=== PATIENT | male | born 1945 | race Caucasian/White ===

== ENCOUNTER 2017-07-31 12:34 | Inpatient (IN) | payer MEDICARE, BC ==
[2017-07-31] MEDS ORDERED: Ondansetron HCl/PF 4 MG/2 ML Vial ONE (12:47)
[2017-07-31 13:08] LABS: #Basophils 0.1 thou/uL (0.0-0.2); #Eosinphils 0.1 thou/uL (0.0-0.7); #Lymphocytes 1.5 thou/uL (1.20-3.40); #Monocytes 0.5 thou/uL (0.11-0.59); #Neutrophils 4.1 thou/uL (1.40-6.50); %Basophils 1.6 % (0.0-1.0); %Eosinophils 1.2 % (0.0-10.0); %Lymphocytes 23.8 % (21.0-51.0); %Monocytes 8.4 % (0.0-10.0); Hematocrit 42.8 % (42.0-52.0); Mean Platelet Volume 8.7 fL (7.4-10.4); Red Blood Cell (RBC) Count 4.83 mill/uL (4.70-6.10); White Blood Cell (WBC) Count 6.4 thou/uL (4.8-10.8)
[2017-07-31 13:17] LABS: ALT (SGPT) 11 U/L (8-55); AST (SGOT) 18 U/L (5-34); Alkaline Phosphatase 102 U/L (40-150); Anion Gap 15 mmol/L (10-20); BUN (Urea Nitrogen) 16 mg/dL (8.4-25.7); Bilirubin, Total 1.3 mg/dL (0.2-1.2); CK (CPK) 113 U/L (30-200); Calc. Creatinine Clearance 0 mL/min (70-130); Calcium 9.3 mg/dL (7.8-10.44); Carbon Dioxide 25 mmol/L (23-31); Chloride 102 mmol/L (98-107); Estimated GFR-MDRD 85; Globulin 2.9 g/dL (2.4-3.5); Lipase 24 U/L (8-78); Magnesium 1.9 mg/dL (1.6-2.6); Protein, Total 6.8 g/dL (5.8-8.1); Troponin I Less than 0.010 ng/mL (< 0.028)
[2017-07-31 13:34] LABS: Bilirubin Negative (Negative); Blood, Urine Negative (Negative); Glucose, Urine (Dipstick) Negative (Negative); Ketone, Urine Negative (Negative); Nitrite Negative (Negative); Protein, Urine (Dipstick) Negative (Neg-Trace); Urobilinogen 0.2 mg/dL (0.2-1.0)
[2017-07-31] MEDS ORDERED: Lorazepam 2 MG/ML VIAL ONE (13:48)
[2017-07-31] MEDS ORDERED: Dextrose 10% in Water 1,000 ML IV SCH (15:45)
[2017-07-31] MEDS ORDERED: Acetaminophen 325 MG TAB PO PRN (16:38)
[2017-07-31] MEDS ORDERED: Zolpidem Tartrate 5 MG TAB PO PRN (16:38)
[2017-07-31] MEDS ORDERED: Ondansetron HCl/PF 4 MG/2 ML Vial IVP PRN (16:38)
[2017-07-31] MEDS ORDERED: Iopamidol 370 76% 100 ML VIAL ONE (16:45)
--- NOTE | 2017-07-31 16:57 | CT ---
CT ABDOMEN AND PELVIS WITH CONTRAST: History: 72-year-old with abdominal pain. Technique: Contrast enhanced CT images of the abdomen and pelvis obtained after administration of IV contrast. Unfortunately, oral contrast was not given. This does decrease the sensitivity for detection of path ology. FINDINGS: The lung bases are unremarkable. No evidence of free intraperitoneal air is seen. Umbilical hernia/d efect is seen. Multilevel lumbar degenerative changes are seen. Lower lumbar facet hypertrophic change is noted. Areas of hypodensity seen in the liver, most compatible with hepatic cysts. The spleen is unremarkab le. Gallbladder and pancreas are unremarkable. Adrenal glands and kidneys unremarkable. No evidence of periaortic lymphadenopathy is seen. There is a focally dilated area noted in the distal small bowel, possibly representing a Meckel's di verticulum. No surrounding inflammatory change seen. Further workup to confirm that this a Meckel's diverticulum can be performed using a Meckel's scan. No dilated loops of small bowel or colon seen otherwise. IMPRESSION: 1. 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 2. Likely hepatic cysts. 3. Possible Meckel's diverticulum. However, as oral contrast was not given I cannot determine whethe r this is a contiguous lumen with the adjacent small bowel. Further workup using Nuclear Medicine Me ckel's scan may be a consideration. POS: [facility]
--- NOTE | 2017-07-31 17:13 | RAD ---
AP CHEST: History: 72-year-old with diarrhea, cramping, abdominal pain, chest pain. FINDINGS: EKG leads seen over the chest. The lungs are well aerated. No evidence of active intrathoracic disea se seen. No evidence of effusions, pneumonia, or pneumothorax seen. IMPRESSION: Unremarkable AP chest. POS: [facility]
--- NOTE | 2017-07-31 17:41 | PDOC.EVN ---
Event Note - Event Note Event Note: AIP with acute attack. om MS iv and D10 @ 125 ml/hr
[2017-07-31 18:07] VITALS: BMI 35.2
--- NOTE | 2017-07-31 18:30 | RAD ---
AP CHEST: Indication: Central line placement. IMPRESSION: No pneumothorax. Right subclavian central venous catheter. The tip projects in the region of the SVC . Left costophrenic angle is excluded. POS: [facility]
[2017-07-31] MEDS: Dextrose 10% in Water 1,000 ML IV SCH ×2 (19:54→22:56)
--- NOTE | 2017-07-31 19:54 | HP ---
PRIMARY CARE PROVIDER: Blas Oliva M.D. Referred to the [facility] by [facility]. HISTORY OF PRESENT ILLNESS: The patient has history of acute intermittent porphyria. He has had a sick feeling with nausea, abdominal discomfort usually on his right side and has not felt well for a bout a week, but it became bad yesterday, had diarrhea all day. No blood in his emesis. No fever, sweats or chills. He states he has episodes like this every 6 weeks, severe in intensity. He has n ot been hospitalized in years. When he gets bad enough he usually comes and gets IV dextrose. PAST MEDICAL HISTORY: Acute intermittent porphyria since his 20s, hypertension, seizure disorder in the past. CURRENT MEDICATIONS: Atenolol 50 mg a day, gabapentin 600 mg 3 times a day, Cymbalta 30 mg a day, o meprazole 20 mg a day and some lhib-ybt-gkcbvuv medicines. ALLERGIES: None. PAST SURGICAL HISTORY: Never. FAMILY HISTORY: He had a son who at 46 of acute intermittent porphyria complications. SOCIAL HISTORY: He is , no tobacco, no alcohol or illicit drugs. REVIEW OF SYSTEMS: General: He has had some associated headache, lightheadedness, no fainting. Ey es: No double vision, blurred vision, flashing lights. Ears, Nose and Throat: No ear pain or drai nage. No nasal bleeding. No trouble swallowing. Cardiac: No chest pain, orthopnea or paroxysmal nocturnal dyspnea. Respiratory: No cough, wheezing or asthma. Gastrointestinal: See present illn ess. Genitourinary: No hematuria, dysuria, or dark urine. Musculoskeletal: Aches and pains in hi s muscles. No swelling in his muscles or joints. He has chronic aches and pains in his legs for wh ich he takes the Cymbalta and gabapentin. Neurologic: He has had seizures in the past, usually ass ociated with severe porphyria episodes. He has been given anti-seizure medicines while in the hospi [facility], but has never taken them long-term. Psychiatric: No anxiety, depression. Skin: No bruising, bleeding or rash. Heme/Lymph: No tender or swollen lymph nodes in axilla, inguinal or cervical ar ea. PHYSICAL EXAMINATION: GENERAL: The patient is alert, oriented, cooperative, and pleasant. He is in no distress, but then he has recently had 4 mg of morphine IV. VITAL SIGNS: Blood pressure 151/87, pulse 97, respirations 16, pulse ox 97% on room air, afebrile. HEAD, EYES, EARS, NOSE AND THROAT: Reveal pupils are equal, round, and reactive to light. Extraocu lar movements are intact. Sclerae are white. Tympanic membranes clear. Nose is clear. Throat is clear. Dental hygiene is good. Mucous membranes are wet. NECK: Supple, without jugular venous distention, adenopathy or thyromegaly. CHEST: Clear to auscultation and percussion. HEART: Regular rate and rhythm. First and second heart sounds are clear. There are no appreciated murmurs or gallops. ABDOMEN: Soft with some mild tenderness, certainly no guarding or peritoneal findings. Bowel sound s are positive. No hepatosplenomegaly, masses, or bruits were appreciated. EXTREMITIES: Reveal no cyanosis, clubbing or edema. PULSES: Carotid, radial, femoral, and dorsalis pedis pulses are intact. SKIN: Warm and dry without bruises or rash. HEME/LYMPH: No tender or swollen lymph nodes in axilla, inguinal or cervical area. Deep tendon ref lexes are intact, symmetric. NEUROLOGIC: Cranial nerves II through XII are intact. LABORATORY AND X-RAY FINDINGS: Urinalysis is clear. Comp metabolic profile is normal except for a bilirubin of 1.3. Lactic acid is 2.0. CBC is unremarkable except for minor decrease in platelet co unt of 122,000. Hemoglobin is 15.7 and white count is 6.4. ASSESSMENT: 1. Acute intermittent porphyria with an acute episode. 2. Hypertension. 3. History of seizure disorder. PLAN: IV-D10 through a central line at 125 mL an hour, IV morphine sulfate 4 mg q.4 hours for pain, selected home medicines. His electrolytes will be monitored on a q.8 hour basis because of the ris k of hyponatremia. CODE STATUS: FULL CODE status. is surrogate decision maker.
[2017-07-31] MEDS: Gabapentin 300 MG CAP PO SCH (19:56)
[2017-07-31 22:53] LABS: Anion Gap 12 mmol/L (10-20); BUN (Urea Nitrogen) 13 mg/dL (8.4-25.7); Calc. Creatinine Clearance 115 mL/min (70-130); Calcium 8.8 mg/dL (7.8-10.44); Carbon Dioxide 27 mmol/L (23-31); Chloride 101 mmol/L (98-107); Estimated GFR-MDRD 79
[2017-08-01] MEDS: Dextrose 10% in Water 1,000 ML IV SCH ×2 (02:26→05:09)
[2017-08-01 06:03] LABS: Anion Gap 14 mmol/L (10-20); BUN (Urea Nitrogen) 12 mg/dL (8.4-25.7); Calc. Creatinine Clearance 113 mL/min (70-130); Calcium 8.7 mg/dL (7.8-10.44); Carbon Dioxide 24 mmol/L (23-31); Chloride 99 mmol/L (98-107); Estimated GFR-MDRD 77
[2017-08-01 07:38] VITALS: BP 98/66; TEMP 98.6
[2017-08-01] MEDS: Gabapentin 300 MG CAP PO SCH (08:39)
[2017-08-01] MEDS ORDERED: Atenolol 50 MG TAB PO SCH (09:00)
--- NOTE | 2017-08-01 09:04 | PDOC.PN ---
- Subjective Encounter Start Date: 08/01/17 Encounter Start Time: 08:56 - Objective MAR Reviewed: Yes Vital Signs & Weight: Vital Signs (12 hours) Temp Pulse Resp BP Pulse Ox 08/01/17 08:00 98.6 F 78 20 95 08/01/17 07:37 98.6 F 78 20 98/66 95 08/01/17 05:47 101.1 F H 102 H 16 119/71 95 08/01/17 01:02 98.7 F 95 16 117/74 94 L 07/31/17 21:48 97.8 F 105 H 18 169/83 H 97 Weight Weight 245 lb I&O: 07/31/17 08/01/17 08/02/17 06:59 06:59 06:59 Intake Total 1500 Output Total 700 Balance 800 Result Diagrams: 07/31/17 12:50 08/01/17 05:05 Dx/Plan - Plan * .
--- NOTE | 2017-08-01 09:21 | DIS ---
TRANSFER OF CARE NOTE PRIMARY CARE PROVIDER: Dr. Blas Oliva DATE OF ADMISSION: 07/31/2017 DATE OF DISCHARGE: 08/01/2017 DISCHARGE DISPOSITION: Home. FINAL DIAGNOSES: 1. Acute abdominal pain. 2. Acute intermittent porphyria. 3. Essential hypertension. 4. History of seizures. DISCHARGE MEDICATIONS: Naproxen 220 b.i.d., tramadol 50 mg t.i.d. p.r.n., temazepam 15 mg at bedtim e p.r.n., omeprazole 40 mg a day, gabapentin 600 mg 3 times a day, Cardura 1 mg b.i.d., atenolol 25 mg p.o. b.i.d. ALLERGIES: No known drug allergies. PENDING AT THE TIME OF DISCHARGE: Nothing. CODE STATUS: Full. HOSPITAL COURSE: The patient admitted with acute attack of acute intermittent porphyria treated wit h D10 IV. The patient is currently asymptomatic and desires to go home. We have discussed the poss ibility of relapse. He was treated with morphine sulfate for pain while in the hospital. His labor atory; comp metabolic profile revealed only a bilirubin of 1.3. CBC was essentially normal. His ab domen is benign. Vital signs are stable. He is being discharged for followup in [address] Jesus spears. CONSULTATIONS: None. PROCEDURES: None.
== END 2017-08-01 11:56 | disposition home or self-care (01) | DRG 642 ==
LOC: SCSER 12:34 → T4-A 17:28
PROVIDERS: ADMIT Internal Medicine; ATTEND Internal Medicine
PROC: 02HV33Z Insertion of Infusion Device into Superior Vena Cava, Percutaneous Approach (ICD-10-PCS; principal; 2017-07-31)
DX: E80.21 Acute intermittent (hepatic) porphyria (principal); G40.909 Epilepsy, unspecified, not intractable, without status epilepticus; I10 Essential (primary) hypertension
CPT/HCPCS: 36415; 36416; 36556; 71010; 74177; 80048; 80053; 81003; 82553; 83605; 83690; 83735; 84484; 85025; 93005; 96360; J2060; J2270; J2405

== ENCOUNTER 2018-08-03 10:43 | Outpatient (CLI) | payer MEDICARE, BC ==
[2018-08-03 12:50] LABS: #Lymphocytes 1.6 thou/uL (1.20-3.40); #Monocytes 0.9 thou/uL (0.11-0.59); #Neutrophils 3.5 thou/uL (1.40-6.50); %Basophils 0.5 % (0.0-1.0); %Eosinophils 0.6 % (0.0-10.0); %Lymphocytes 26.3 % (21.0-51.0); %Monocytes 14.5 % (0.0-10.0); %Neutrophils 58.1 % (42.0-75.0); Hemoglobin 14.5 g/dL (14.0-18.0); Mean Corpuscular HGB CONC 33.4 g/dL (32.0-36.0); Mean Corpuscular Hemoglobin 31.4 pg (27.0-31.0); Mean Corpuscular Volume 93.9 fL (78.0-98.0); Mean Platelet Volume 8.1 fL (7.4-10.4); Platelet Count 136 thou/uL (130-400); RBC Distribution Width 11.6 % (11.5-14.5); Red Blood Cell (RBC) Count 4.61 mill/uL (4.70-6.10); White Blood Cell (WBC) Count 6.1 thou/uL (4.8-10.8)
[2018-08-03 13:09] LABS: Anion Gap 9 mmol/L (10-20); BUN (Urea Nitrogen) 18 mg/dL (8.4-25.7); Calc. Creatinine Clearance 0 mL/min (70-130); Calcium 9.7 mg/dL (7.8-10.44); Carbon Dioxide 32 mmol/L (23-31); Chloride 100 mmol/L (98-107); Estimated GFR-MDRD 77; Glucose 103 mg/dL (83-110); Potassium 4.1 mmol/L (3.5-5.1); Sodium 137 mmol/L (136-145)
--- NOTE | 2018-08-03 15:25 | EKG ---
Test Reason : Blood Pressure : / mmHG Vent. Rate : 074 BPM Atrial Rate : 074 BPM P-R Int : 192 ms QRS Dur : 098 ms QT Int : 374 ms P-R-T Axes : 041 017 055 degrees QTc Int : 415 ms Normal sinus rhythm Cannot rule out Anterior infarct , age undetermined Abnormal ECG When compared with ECG of 31-JUL-2017 13:03, No significant change was found Confirmed by ALEXANDRIA LUCIO, . SDelroy ([id number]) on 08/03/2018 3:25:19 PM Referred By: DEEPA Confirmed By:DR. Douglas IBRAHIM MD
== END 2018-08-03 10:44 | disposition home or self-care (01) ==
LOC: LABBT 10:43
PROVIDERS: ATTEND Specialist
DX: Z01.818 Encounter for other preprocedural examination (principal); K40.90 Unilateral inguinal hernia, without obstruction or gangrene, not specified as recurrent
CPT/HCPCS: 80048; 85025; 93005; 93010

== ENCOUNTER 2018-08-04 06:45 | Inpatient (IN) | payer MEDICARE, BC ==
--- NOTE | 2018-08-01 15:14 | HP ---
HISTORY OF PRESENT ILLNESS: Ant Saunders is a 72-year-old male patient, presents, referred b geeta Oliva for right inguinal hernia. Plan is for robotic repair of right inguinal hernia with mesh . Risk of infection, bleeding, reoperation, recurrence discussed. The patient has a history of porp hyria, has intermittent abdominal pain. He has undergone a CAT scan. This suggests the possibility of Meckel's diverticulum, but this is probably an incidental finding. He denies any pain or discomfo rt or mass on the left side. Exam today in the office reveals a palpable right inguinal hernia. Thi s is more bothersome at night after being on his feet and working all day and he finds it difficult t o sleep. ALLERGIES: None. TOBACCO: None. ALCOHOL: None. MEDICATIONS: Doxazosin 2 mg a day, naproxen daily, atenolol 25 mg a day, gabapentin 600 mg a day, tr amadol as needed for pain, omeprazole 40 mg a day, Benadryl p.r.n., temazepam daily. PAST SURGICAL HISTORY: Noncontributory. PAST MEDICAL HISTORY: Noncontributory. FAMILY HISTORY: The patient has family history of colon cancer and has regular colonoscopies, last p erformed two years ago. 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 PHYSICAL EXAMINATION: VITAL SIGNS: Weight 206 pounds, height 5 foot 11 inches, blood pressure 123/79, pulse 70, temperatur e 98.2 degrees. HEENT: Unremarkable. LUNGS: Clear to auscultation. CARDIAC: Regular rate and rhythm without murmur or gallop. ABDOMEN: Soft, nontender, no masses. GENITOURINARY: Testicles are normal. Right groin reveals a hernia enlarges on Valsalva. Left groin without evident hernias. EXTREMITIES: Unremarkable. No ankle edema. NEUROLOGIC: Intact. Cranial nerves intact. No neurological deficit. ASSESSMENT AND PLAN: 1. Right inguinal hernia. Plan robotic mesh repair. Risk of infection, bleeding, reoperation discu ssed, consents obtained. If he has a left inguinal hernia, he agrees to repair if indicated, but non e is appreciated clinically or historically. 2. Porphyria with intermittent abdominal pains.
[2018-08-03 10:54] VITALS: BMI 29.2
[2018-08-04] MEDS ORDERED: Ketorolac Tromethamine 30 MG/ML VIAL ONE (08:13)
[2018-08-04] MEDS ORDERED: CEFAZOLIN/Water 2 GM/20 ML SYRINGE ONE (08:13)
[2018-08-04] MEDS ORDERED: Bupivacaine HCl 0.5%/Epinephrine 1:200,000/PF 30 ml Vial ONE (09:50)
[2018-08-04] MEDS ORDERED: Fentanyl 100 MCG/2 ML VIAL ONE ×2 (10:01→12:04)
--- NOTE | 2018-08-04 12:16 | OP ---
DATE OF PROCEDURE: 08/04/2018 PREOPERATIVE DIAGNOSIS: Right inguinal hernia. POSTOPERATIVE DIAGNOSIS: Right inguinal hernia. PROCEDURE: Robotic repair using mesh right inguinal hernia, indirect. SURGEON: Dr. Jorge Valenzuela ANESTHESIA: General. Local 0.5% Marcaine with epinephrine, 30 mL. PROCEDURE: The patient was taken to the operating room where under general anesthesia, abdomen clipp ed of hair, prepared with ChloraPrep, draped in routine fashion. Local anesthetic infiltrated into t he skin and subcutaneous tissue about all port sites. Mid upper abdominal incision made just to the left of midline, an incision made and pneumoperitoneum to 15 mmHg obtained with the Veress needle, re placing it with an 11 port with the balloon stay device and laparoscope introduced and bilateral subc ostal lateral mid abdominal incision made. An 8 mm ports placed. The left groin was without inguina l hernia. Sigmoid colon had filmy adhesions to this portion of the peritoneum. Grossly the abdomina l cavity was unremarkable, noting a significant indirect right inguinal hernia. Near the anterior bradley perior iliac spine peritoneal flap developed laterally proceeded medially developing a flap, identify ing the hernia defect and inferior epigastric vessels, dissecting the flap down to Dilip's ligament medially and laterally to the lateral pelvis. The hernia sac dissected free from the cord structures taking down cremasteric fiber and hernia sac, dissecting it free from the cord structures well withi n the abdominal cavity. Cord structures and inferior epigastric vessels kept free of harm. The larg e mesh was then obtained and properly oriented secured to Dilip's ligament with 2-0 Vicryl suture an d to the abdominal wall just lateral to the epigastric vessels. This covered the cord structures mikel y well that the pelvis very well as the peritoneal flap was closed laterally to medially with continu ous 2-0 V-Loc suture. Once this was completed, the needles were retrieved and pneumoperitoneum redu lars and all instruments removed and all skin incisions closed with interrupted subdermal 4-0 Monocryl and DermaGlue applied.
[2018-08-04] MEDS ORDERED: Lorazepam 2 MG/ML VIAL ONE (14:42)
[2018-08-04] MEDS ORDERED: Dextrose 50% Abboject 50 ML SYRINGE ONE (14:54)
[2018-08-04] MEDS ORDERED: Lidocaine 1% PF 5 ML VIAL ONE (15:14)
[2018-08-04] MEDS ORDERED: ePHEDrine/0.9% NaCl/PF SYRINGE 50 mg/10 ml ONE (15:14)
[2018-08-04] MEDS ORDERED: Glycopyrrolate 0.2 MG/ML 5 ML SYRINGE ONE (15:14)
[2018-08-04] MEDS ORDERED: PHENYLEPHRINE-NS 100 MCG/ML 10 ML SYRINGE ONE (15:14)
[2018-08-04] MEDS ORDERED: PROPOFOL 200 MG/20 ML VIAL ONE (15:14)
[2018-08-04] MEDS ORDERED: Morphine 4 MG/ML VIAL ONE (15:14)
[2018-08-04] MEDS ORDERED: Acetaminophen 500 MG TAB PO PRN (15:42)
[2018-08-04] MEDS ORDERED: Ketorolac Tromethamine 30 MG/ML VIAL IVP PRN (15:42)
[2018-08-04 15:53] LABS: #Lymphocytes 1.1 thou/uL (1.20-3.40); #Monocytes 0.3 thou/uL (0.11-0.59); #Neutrophils 2.7 thou/uL (1.40-6.50); %Basophils 0.4 % (0.0-1.0); %Eosinophils 0.3 % (0.0-10.0); %Lymphocytes 26.2 % (21.0-51.0); %Monocytes 7.2 % (0.0-10.0); %Neutrophils 65.8 % (42.0-75.0); Hemoglobin 12.2 g/dL (14.0-18.0); Mean Corpuscular HGB CONC 34.1 g/dL (32.0-36.0); Mean Corpuscular Volume 93.7 fL (78.0-98.0); Mean Platelet Volume 7.9 fL (7.4-10.4); Platelet Count 129 thou/uL (130-400); RBC Distribution Width 11.5 % (11.5-14.5); Red Blood Cell (RBC) Count 3.82 mill/uL (4.70-6.10); White Blood Cell (WBC) Count 4.1 thou/uL (4.8-10.8)
[2018-08-04 16:15] LABS: Anion Gap 10 mmol/L (10-20); BUN (Urea Nitrogen) 14 mg/dL (8.4-25.7); Calc. Creatinine Clearance 107 mL/min (70-130); Calcium 8.3 mg/dL (7.8-10.44); Carbon Dioxide 27 mmol/L (23-31); Chloride 101 mmol/L (98-107); Estimated GFR-MDRD Greater than 90; Glucose 216 mg/dL (83-110); Sodium 134 mmol/L (136-145)
[2018-08-04] MEDS ORDERED: diphenhydrAMINE 25 MG CAP PO PRN (18:43)
[2018-08-04] MEDS: Dextrose 5 %-0.45 % NaCl 1,000 ML IV SCH ×2 (18:54→23:39)
[2018-08-04] MEDS ORDERED: Temazepam 15 MG CAP PO SCH (21:00)
[2018-08-04] MEDS: Gabapentin 300 MG CAP PO SCH (21:21)
[2018-08-04] MEDS: Naproxen 500 MG TAB PO SCH (21:22)
[2018-08-04] MEDS: Doxazosin 2 MG TAB PO SCH (21:23)
[2018-08-04] MEDS: Atenolol 25 MG TAB PO SCH (21:23)
[2018-08-04] MEDS: traMADol HCl 50 MG TAB PO PRN (21:29)
--- NOTE | 2018-08-04 22:23 | CON ---
DATE OF CONSULTATION: 08/04/2018 HISTORY OF PRESENT ILLNESS: Mr. Saunders is a very pleasant 73-year-old male who underwent surgery tod ay. Unfortunately, Mr. Saunders has porphyria and had to be n.p.o. prior to his mesh repair of a right inguinal hernia. Postoperatively, he started having abdominal discomfort consistent with his porphyria. He initially thought he would be able to manage this at home and now admits that he would better be served to stay in the hospital until he is hydrated and his porphyria is under control. He says he first had symptoms of his porphyria in his mid to late 20s, but it was not diagnosed until many years later. He has actually been able to manage himself quite well by just maintaining his car been taken, not rivera ving prolonged periods without eating. PAST MEDICAL HISTORY: Remarkable for having hypertension and neuropathy. He has a history of a seiz ure disorder, reportedly. MEDICATIONS: He is on doxazosin, Naprosyn, atenolol, gabapentin, tramadol, and omeprazole. FAMILY HISTORY: Negative for lung disease at an early age. FAMILY HISTORY: Positive for losing the son at age 46 with porphyria complications. SOCIAL HISTORY: He is a nonsmoker, nondrinker. Does not use drugs. He has a daughter in the room, is very supportive. REVIEW OF SYSTEMS: Ten-points otherwise negative. PHYSICAL EXAMINATION: VITAL SIGNS: He is afebrile, heart rate is 86, respiratory rate is 18, oximetry is 99% on room air, blood pressure 156/78. HEENT: Pupils are equal. Sclerae anicteric. NECK: Supple. LUNGS: Clear. HEART: Regular rhythm. ABDOMEN: Only minimally tender. EXTREMITIES: Without asymmetry or edema. NEUROLOGIC: Grossly nonfocal. LABORATORY DATA: White count 4.1, hemoglobin 12.2, platelets 129,000. Electrolytes were normal. Gl ucose was 216 this afternoon. IMPRESSION AND PLAN: Porphyria with abdominal complaints consistent with his porphyria and triggered by being n.p.o. for his surgery. He has received glucose infusions and we will continue to do so th roughout the night. Hopefully, his pain will be under control by the morning and he can be discharge d home. We will be happy to follow with the other physicians caring for her.
[2018-08-05 04:28] LABS: #Eosinphils 0.1 thou/uL (0.0-0.7); #Lymphocytes 1.5 thou/uL (1.20-3.40); #Monocytes 0.6 thou/uL (0.11-0.59); #Neutrophils 2.1 thou/uL (1.40-6.50); %Basophils 0.3 % (0.0-1.0); %Eosinophils 1.3 % (0.0-10.0); %Lymphocytes 35.6 % (21.0-51.0); %Monocytes 13.8 % (0.0-10.0); Hemoglobin 11.8 g/dL (14.0-18.0); Mean Corpuscular HGB CONC 34.4 g/dL (32.0-36.0); Mean Corpuscular Hemoglobin 32.5 pg (27.0-31.0); Mean Corpuscular Volume 94.6 fL (78.0-98.0); Mean Platelet Volume 8.3 fL (7.4-10.4); Platelet Count 132 thou/uL (130-400); RBC Distribution Width 11.4 % (11.5-14.5); Red Blood Cell (RBC) Count 3.65 mill/uL (4.70-6.10); White Blood Cell (WBC) Count 4.2 thou/uL (4.8-10.8)
[2018-08-05 04:56] LABS: Anion Gap 9 mmol/L (10-20); BUN (Urea Nitrogen) 10 mg/dL (8.4-25.7); Calc. Creatinine Clearance 114 mL/min (70-130); Calcium 8.2 mg/dL (7.8-10.44); Carbon Dioxide 28 mmol/L (23-31); Chloride 105 mmol/L (98-107); Estimated GFR-MDRD Greater than 90; Glucose 108 mg/dL (83-110); Potassium 3.8 mmol/L (3.5-5.1); Sodium 138 mmol/L (136-145)
[2018-08-05] MEDS: Dextrose 5 %-0.45 % NaCl 1,000 ML IV SCH (09:16)
[2018-08-05] MEDS: Naproxen 500 MG TAB PO SCH (09:17)
[2018-08-05] MEDS: Gabapentin 300 MG CAP PO SCH (09:18)
[2018-08-05] MEDS: Atenolol 25 MG TAB PO SCH (09:18)
[2018-08-05] MEDS: Doxazosin 2 MG TAB PO SCH (09:18)
[2018-08-05] MEDS: traMADol HCl 50 MG TAB PO PRN (10:59)
[2018-08-05 13:07] VITALS: BP 145/72; TEMP 98.4
--- NOTE | 2018-08-05 18:57 | DIS ---
DATE OF ADMISSION: 08/04/2018 DATE OF DISCHARGE: 08/05/2018 ADMISSION DIAGNOSES: 1. Status post inguinal hernia repair with mesh. 2. History of acute exacerbation of intermittent porphyria with acute abdominal pain. DISCHARGE DIAGNOSES: 1. Status post inguinal hernia repair with mesh. 2. History of acute exacerbation of intermittent porphyria with acute abdominal pain. MARKET DEVELOPMENT DIRECTOR: Dr. Schneider, Critical Care Medicine. PROCEDURE: Robotic repair of right indirect inguinal hernia with mesh. HOSPITAL COURSE: Ant Saunders is a 73-year-old male seen by Dr. Valenzuela with a history of intermitt ent porphyria. He was taken to the operating room for a robotic repair of his inguinal hernia on . Postoperatively, the patient was doing well and preparing to go home; however, as he was at tempting to urinate, he had acute onset of severe abdominal pain causing a brief loss of consciousnes s. A code blue was called at that time. The patient continued to have intermittent severe abdominal pain, which is consistent with his history of porphyria. He was admitted for pain control and furth er observation to the Intermediate Care Unit with consultation from Critical Care Medicine, Dr. Schneider . Overnight, the patient did well. Pain was controlled via p.o. analgesics. He was tolerating a ge neral diet. He was able to ambulate with minimal difficulty. Upon evaluation, 08/05/2018, the [facility] nt states that he was doing well and he was deemed medically stable for discharge. DISCHARGE DISPOSITION: Home. DISCHARGE CONDITION: Good. PHYSICAL EXAMINATION: VITAL SIGNS: Temperature 98.4, pulse 64, respirations 16, O2 sat 98% on room air, blood pressure 145 /72. GENERAL: Well-developed elderly man in no acute distress, resting in bed. PULMONARY: Normal work of breathing, symmetric rise. CARDIOVASCULAR: Regular rate and rhythm. GASTROINTESTINAL: Abdomen is soft, nontender, nondistended. MUSCULOSKELETAL: Moves all extremities x4. NEUROLOGIC: No focal deficit noted. DISCHARGE MEDICATIONS: As documented in electronic medical record. DISCHARGE INSTRUCTIONS: Discharge instructions were provided to the patient prior to discharge. He vocalizes understanding. He should keep his wound clean and dry. He should refrain from heavy lifti ng or strenuous exercise until cleared by Dr. Valenzuela. FOLLOWUP APPOINTMENTS: The patient is to follow up with his primary care provider as needed for his porphyria. He is to follow up with Dr. Valenzuela as instructed postoperatively. This is merely a summa ry of the patient's hospitalization. For more in-depth information, please see his medical record in its entirety.
--- NOTE | 2018-08-05 20:49 | PRG ---
DATE OF SERVICE: 08/05/2018 SUBJECTIVE: Mr. Saunders has no more pain. He says he is feeling great. He wants to go home. His vi deyanira signs are stable overnight. His exam was unchanged. He had no abdominal tenderness. It is reasonable for him to go home if Surgery agrees. The discharge order was placed in the compute r.
== END 2018-08-05 15:13 | disposition home or self-care (01) | DRG 352 ==
LOC: SDC 06:45 → IMCU/EMU 16:33
PROVIDERS: ADMIT Specialist; ATTEND Specialist
PROC: 0YU50JZ Supplement Right Inguinal Region with Synthetic Substitute, Open Approach (ICD-10-PCS; principal; 2018-08-04)
PROC: 8E0W0CZ Robotic Assisted Procedure of Trunk Region, Open Approach (ICD-10-PCS; 2018-08-04)
DX: K40.90 Unilateral inguinal hernia, without obstruction or gangrene, not specified as recurrent (principal)
CPT/HCPCS: 36415; 80048; 85025; 86850; 86900; 86901; 93005; 93010; C1781; J0131; J0670; J1885; J2001; J2060; J2270; J2704; J3010

== ENCOUNTER 2019-05-29 09:45 | Day surgery (SDC) | payer MEDICARE, BC ==
[2019-05-28 16:26] VITALS: BMI 28.7
[2019-05-29 10:29] LABS: INR-International Normal Ratio 1.4; PTT 40.6 SEC (22.9-36.1)
[2019-05-29 10:48] LABS: Anion Gap 11 mmol/L (10-20); BUN (Urea Nitrogen) 12 mg/dL (8.4-25.7); Calc. Creatinine Clearance 100 mL/min (70-130); Calcium 9.8 mg/dL (7.8-10.44); Carbon Dioxide 31 mmol/L (23-31); Chloride 101 mmol/L (98-107); Estimated GFR-MDRD 87; Glucose 96 mg/dL (83-110); Sodium 138 mmol/L (136-145)
--- NOTE | 2019-05-29 12:45 | OP ---
DATE OF PROCEDURE: 05/29/2019 PROCEDURE PERFORMED: Electrocardioversion. INDICATION: A 73-year-old gentleman with paroxysmal atrial fibrillation. DESCRIPTION OF PROCEDURE: The patient was taken to the PACU. The patient was sedated by Anesthesiology. The patient was shocked with 200 joules of synchronized electricity. The patient converted to normal sinus rhythm. IMPRESSION: Successful electrocardioversion. Job ID: [id number] [facility]
--- NOTE | 2019-05-29 12:56 | OP ---
DATE OF PROCEDURE: 05/29/2019 PROCEDURE PERFORMED: Transesophageal echocardiogram. INDICATION: A 73-year-old gentleman with paroxysmal atrial fibrillation. DESCRIPTION OF PROCEDURE: The patient was taken to the PACU. The patient was sedated by Anesthesiology. Transesophageal probe was placed into the distal esophagus and stomach. Echocardiographic images were obtained. FINDINGS: 1. Normal left systolic function. 2. Marked biatrial enlargement. 3. The left ventricle is not dilated. 4. Normal mitral aortic valves. 5. Moderate mitral regurgitation. 6. Mild tricuspid regurgitation. 7. No thrombus noted in the left atrium and left atrial appendage. 8. Atherosclerotic debris in the descending aorta. IMPRESSION: No formed thrombus in left atrium and left atrial appendage. Job ID: [id number] [facility]
--- NOTE | 2019-05-29 15:31 | DIS ---
DATE OF ADMISSION: 05/29/2019 DATE OF DISCHARGE: 05/29/2019 DISCHARGE DIAGNOSES: 1. Atrial fibrillation. 2. Hypertension. 3. Benign prostatic hypertrophy. 4. Gastroesophageal reflux. 5. Porphyria. HISTORY OF PRESENT ILLNESS: The patient is a pleasant 73-year-old gentleman who presented for evaluation of dizziness. The patient reports having increasing fatigue. He also has had lightheadedness and nearly lost consciousness. He states his symptoms began several months ago. He was noted to be in atrial fibrillation by his primary physician. He was started on Eliquis. He was referred for further evaluation. HOSPITAL COURSE: On 05/29/2019, the patient underwent a transesophageal echocardiogram. He was found to have normal left ventricular systolic function with biatrial enlargement and moderate mitral regurgitation. The patient underwent successful electrocardioversion. The patient was discharged in stable condition. Arrangements are being made for him to follow up in [place] with the cardiac arrhythmia group. DISCHARGE MEDICATIONS: 1. Atenolol 25 b.i.d. 2. Eliquis 5 b.i.d. 3. Benadryl tablet at bedtime. 4. Colace tablet daily. 5. Gabapentin 600 t.i.d. 6. Multivitamin tablet daily. 7. Prilosec 20 daily. Job ID: [id number] [facility]
--- NOTE | 2019-05-31 17:54 | EKG ---
Test Reason : PREOP Blood Pressure : / mmHG Vent. Rate : 066 BPM Atrial Rate : 267 BPM P-R Int : 000 ms QRS Dur : 094 ms QT Int : 388 ms P-R-T Axes : 000 006 050 degrees QTc Int : 406 ms Atrial fibrillation Abnormal ECG When compared with ECG of 03-AUG-2018 11:21, Atrial fibrillation has replaced Sinus rhythm Minimal criteria for Anterior infarct are no longer Present T wave amplitude has increased in Anterior leads Confirmed by DR. Axel SNOW ([id number]) on 05/31/2019 5:54:22 PM Referred By: BEATA Confirmed By:DR. Axel SNOW
--- NOTE | 2019-05-31 17:56 | EKG ---
Test Reason : POST CARDIOVERSION Blood Pressure : / mmHG Vent. Rate : 054 BPM Atrial Rate : 054 BPM P-R Int : 212 ms QRS Dur : 104 ms QT Int : 432 ms P-R-T Axes : 050 023 068 degrees QTc Int : 409 ms Sinus bradycardia with 1st degree A-V block Otherwise normal ECG When compared with ECG of 29-MAY-2019 10:25, (Unconfirmed) Sinus rhythm has replaced Atrial fibrillation Confirmed by DR. Axel SNOW ([id number]) on 05/31/2019 5:55:47 PM Referred By: BEATA Confirmed By:DR. Axel SNOW
== END 2019-05-29 14:00 | disposition home or self-care (01) ==
LOC: CCL 09:45
PROVIDERS: ATTEND Internal Medicine Cardiovascular Disease
PROC: 5A2204Z Restoration of Cardiac Rhythm, Single (ICD-10-PCS; principal; 2019-05-29)
PROC: B245ZZ4 Ultrasonography of Left Heart, Transesophageal (ICD-10-PCS; 2019-05-29)
DX: I48.0 Paroxysmal atrial fibrillation (principal); I10 Essential (primary) hypertension; N40.0 Benign prostatic hyperplasia without lower urinary tract symptoms; K21.9 Gastro-esophageal reflux disease without esophagitis; E80.21 Acute intermittent (hepatic) porphyria; Z79.01 Long term (current) use of anticoagulants; Z79.899 Other long term (current) drug therapy
CPT/HCPCS: 36415; 80048; 85610; 85730; 92960; 93005; 93010; 93312